=== PATIENT | male | born 1995 | race Caucasian/White ===

== ENCOUNTER 2017-01-13 05:37 | Emergency (ER) | payer OTHER ==
[~2017-01-13] VITALS: Ht 177.8 cm; Wt 97.5 kg
[~2017-01-13 05:37] MED LIST: AMOXICILLIN500 MG PO; AMOXIL250 MG/5 M PO; BENTYL10 MG PO; PREDNISONE20 M1 PO; TYLENOL W/CODE480 ML PO; TYLENOL W/CODEI1 TA2 PO; ZOFRAN ODT4 MG SL
[2017-01-13 05:43] VITALS: BP 129/86
[2017-01-13] MEDS ORDERED: DELTASONE20 M1 PO (06:28)
== END 2017-01-13 06:45 | disposition home or self-care (01) ==
LOC: ED 05:37
DX: R21 Rash and other nonspecific skin eruption (principal); F17.200 Nicotine dependence, unspecified, uncomplicated; Z79.899 Other long term (current) drug therapy

== ENCOUNTER 2017-07-09 20:45 | Emergency (ER) | payer OTHER ==
[~2017-07-09] VITALS: Ht 182.8 cm; Wt 90.7 kg
[~2017-07-09 20:45] MED LIST changes: +DELTASONE20 M1 PO
[2017-07-09 21:03] VITALS: BP 117/72
== END 2017-07-09 23:56 | disposition home or self-care (01) ==
LOC: ED 20:45
DX: S60.011A Contusion of right thumb without damage to nail, initial encounter (principal); Y93.9 Activity, unspecified; Y92.9 Unspecified place or not applicable; Y99.9 Unspecified external cause status; W22.8XXA Striking against or struck by other objects, initial encounter

== ENCOUNTER 2017-09-07 08:37 | Emergency (ER) | payer OTHER ==
[~2017-09-07] VITALS: Ht 177.8 cm; Wt 90.7 kg
[2017-09-07 08:44] VITALS: BP 121/77
[2017-09-07] MEDS ORDERED: PREDNISONE20 M1 PO (09:01)
[2017-09-07] MEDS ORDERED: LIDEX 0.05% CRE15 GM T (09:01)
== END 2017-09-07 09:37 | disposition home or self-care (01) ==
LOC: ED 08:37
DX: L25.9 Unspecified contact dermatitis, unspecified cause (principal); F17.200 Nicotine dependence, unspecified, uncomplicated; F10.10 Alcohol abuse, uncomplicated

== ENCOUNTER 2018-05-28 11:59 | Emergency (ER) | payer SELFPAY ==
[~2018-05-28 11:59] MED LIST changes: +LIDEX 0.05% CRE15 GM T
[2018-05-28 12:01] VITALS: BP 135/84
[2018-05-28] MEDS ORDERED: PREDNISONE10 MG PO (12:05)
== END 2018-05-28 13:55 | disposition home or self-care (01) ==
LOC: ED 11:59
DX: L25.9 Unspecified contact dermatitis, unspecified cause (principal)

== ENCOUNTER 2018-10-28 19:43 | Emergency (ER) | payer SELFPAY ==
[~2018-10-28] VITALS: Ht 182.8 cm; Wt 104.3 kg
[~2018-10-28 19:43] MED LIST changes: +PREDNISONE10 MG PO
[2018-10-28 19:44] VITALS: BP 139/76
[2018-10-28] MEDS ORDERED: ZOFRAN4 MG PO (20:49)
[2018-11-21] MEDS ORDERED: ONDANSETRON4 MG SL (20:34)
== END 2018-10-28 21:05 | disposition home or self-care (01) ==
LOC: ED 19:43
DX: J10.1 Influenza due to other identified influenza virus with other respiratory manifestations (principal); F12.90 Cannabis use, unspecified, uncomplicated; F17.200 Nicotine dependence, unspecified, uncomplicated; Z79.899 Other long term (current) drug therapy

== ENCOUNTER 2019-02-26 11:44 | Emergency (ER) | payer OTHER ==
[~2019-02-26] VITALS: Ht 180.3 cm; Wt 108.9 kg
[~2019-02-26 11:44] MED LIST changes: +ONDANSETRON4 MG SL; +ZOFRAN4 MG PO
[2019-02-26 11:46] VITALS: BP 121/83
[2019-02-26] MEDS ORDERED: MIXED AMPHETAMI25 M1 PO (11:47)
[2019-02-26] MEDS ORDERED: NAPROSYN500 MG PO (12:59)
[2019-02-26] MEDS ORDERED: ROBAXIN500 M1 PO (12:59)
== END 2019-02-26 14:46 | disposition home or self-care (01) ==
LOC: ED 11:44
DX: S46.911A Strain of unspecified muscle, fascia and tendon at shoulder and upper arm level, right arm, initial encounter (principal); F17.200 Nicotine dependence, unspecified, uncomplicated; Z79.899 Other long term (current) drug therapy; X50.0XXA Overexertion from strenuous movement or load, initial encounter; Y93.89 Activity, other specified; Y92.89 Other specified places as the place of occurrence of the external cause; Y99.8 Other external cause status

== ENCOUNTER 2019-05-30 14:18 | Emergency (ER) | payer OTHER ==
[~2019-05-30] VITALS: Ht 177.8 cm; Wt 108.9 kg
[2019-05-30 14:18] VITALS: BP 129/73
[~2019-05-30 14:18] MED LIST changes: +MIXED AMPHETAMI25 M1 PO; +NAPROSYN500 MG PO; +ROBAXIN500 M1 PO
[2019-05-30] MEDS ORDERED: LIDEX 0.05% CRE15 GM T (14:32)
[2019-05-31] MEDS ORDERED: PREDNISONE20 M1 PO (19:44)
== END 2019-05-30 14:41 | disposition home or self-care (01) ==
LOC: ED 14:18
DX: L25.9 Unspecified contact dermatitis, unspecified cause (principal); F17.200 Nicotine dependence, unspecified, uncomplicated; Z79.899 Other long term (current) drug therapy

== ENCOUNTER 2019-05-31 19:16 | Emergency (ER) | payer OTHER ==
[~2019-05-31] VITALS: Ht 177.8 cm; Wt 108.9 kg
[2019-05-31 19:17] VITALS: BP 130/77
[2019-05-31] MEDS ORDERED: PREDNISONE20 M1 PO (19:44)
== END 2019-05-31 20:02 | disposition home or self-care (01) ==
LOC: ED 19:16
DX: L23.7 Allergic contact dermatitis due to plants, except food (principal); F17.200 Nicotine dependence, unspecified, uncomplicated; Z79.899 Other long term (current) drug therapy

== ENCOUNTER → 2019-11-23 | Outpatient (CLI) | payer OTHER ==
[2019-11-23 17:22] LABS: HEMATOCRIT 46.2 % (42.0-52.0); HEMOGLOBIN 16.2 g/dl (14.0-18.0); MEAN CELL VOLUME 90.2 fl (80.0-94.0); MEAN CORPUSCULAR HGB 31.6 pg (27.0-31.0); MEAN CORPUSCULAR HGB CONC 35.1 g/dl (33.0-37.0); MEAN PLATELET VOLUME 11.2 fl (9.6-12.3); RED BLOOD COUNT 5.12 10*6/uL (4.50-5.90); RED CELL DISTRI WIDTH 12.8 % (0-14.5); WHITE BLOOD COUNT 7.8 10*3/uL (4.8-10.8)
[2019-11-23 17:43] LABS: ALBUMIN 4.4 gm/dl (3.1-4.5); ALKALINE PHOSPHATASE 82 U/L (45-117); BUN 11 mg/dl (7-24); CHLORIDE 106 mmol/L (98-107); CREATININE 1.01 mg/dL (0.70-1.30); POTASSIUM 3.5 mmol/L (3.5-5.1); SGOT/AST 31 IU/L (3-35); SGPT/ALT 63 U/L (12-78); SODIUM 138 mmol/L (136-145); TOTAL PROTEIN 7.8 gm/dL (6.4-8.2)
== END | disposition home or self-care (01) ==
LOC: LAB 16:57
PROVIDERS: Family Medicine
DX: F90.9 Attention-deficit hyperactivity disorder, unspecified type (principal)

== ENCOUNTER → 2019-11-25 | Outpatient (CLI) | payer OTHER | END | disposition home or self-care (01) | LOC: LAB 17:45 | DX: Z02.83 Encounter for blood-alcohol and blood-drug test (principal) ==

== ENCOUNTER → 2019-12-18 | Outpatient (CLI) | payer OTHER | END | disposition home or self-care (01) | LOC: LAB 14:39 | DX: F90.9 Attention-deficit hyperactivity disorder, unspecified type (principal) ==

== ENCOUNTER 2020-02-13 08:16 | Emergency (ER) | payer OTHER ==
[~2020-02-13] VITALS: Ht 180.3 cm; Wt 108.4 kg
[2020-02-13 08:19] VITALS: BP 135/86
[2020-02-13] MEDS ORDERED: MEDROL DOSEPAK4 MG PO (08:54)
== END 2020-02-13 09:00 | disposition home or self-care (01) ==
LOC: ED 08:16
DX: L25.5 Unspecified contact dermatitis due to plants, except food (principal); Z79.899 Other long term (current) drug therapy

== ENCOUNTER 2020-04-20 16:04 | Emergency (ER) | payer OTHER ==
[~2020-04-20] VITALS: Ht 177.8 cm; Wt 104.3 kg
[~2020-04-20 16:04] MED LIST changes: +MEDROL DOSEPAK4 MG PO
[2020-04-20 16:12] VITALS: BP 146/82
[2020-04-20] MEDS ORDERED: PREDNISONE10 MG PO (16:45)
== END 2020-04-20 16:55 | disposition home or self-care (01) ==
LOC: ED 16:04
DX: L25.5 Unspecified contact dermatitis due to plants, except food (principal); Z79.899 Other long term (current) drug therapy

== ENCOUNTER 2020-11-04 17:35 | Emergency (ER) | payer OTHER ==
[~2020-11-04] VITALS: Ht 177.8 cm; Wt 113.4 kg
[2020-11-04 17:47] VITALS: BP 124/90
[2020-11-04] MEDS ORDERED: CYCLOBENZAPRINE5 M3 PO (19:15)
[2020-11-04] MEDS ORDERED: Motrin,Rufen800 MG PO (19:15)
== END 2020-11-04 19:32 | disposition home or self-care (01) ==
LOC: ED 17:35
DX: S49.91XA Unspecified injury of right shoulder and upper arm, initial encounter (principal); F17.200 Nicotine dependence, unspecified, uncomplicated; Z79.899 Other long term (current) drug therapy; V86.56XA Driver of dirt bike or motor/cross bike injured in nontraffic accident, initial encounter; Y93.89 Activity, other specified; Y92.89 Other specified places as the place of occurrence of the external cause; Y99.8 Other external cause status

== ENCOUNTER 2021-04-03 12:13 | Emergency (ER) | payer OTHER ==
[~2021-04-03] VITALS: Ht 177.8 cm; Wt 108.9 kg
[~2021-04-03 12:13] MED LIST changes: +CYCLOBENZAPRINE5 M3 PO; +Motrin,Rufen800 MG PO
[2021-04-03 12:34] VITALS: BP 133/80
== END 2021-04-03 12:57 | disposition home or self-care (01) ==
LOC: ED 12:13
DX: L25.9 Unspecified contact dermatitis, unspecified cause (principal); F17.200 Nicotine dependence, unspecified, uncomplicated; Z79.899 Other long term (current) drug therapy; Z98.890 Other specified postprocedural states

== ENCOUNTER 2022-08-09 23:13 | Emergency (ER) | payer OTHER ==
[~2022-08-09] VITALS: Ht 177.8 cm; Wt 99.8 kg
[2022-08-09 23:28] VITALS: BP 112/63
== END 2022-08-10 02:28 | disposition home or self-care (01) ==
LOC: ED 23:13
DX: S16.1XXA Strain of muscle, fascia and tendon at neck level, initial encounter (principal); S00.03XA Contusion of scalp, initial encounter; Z79.899 Other long term (current) drug therapy; Y08.89XA Assault by other specified means, initial encounter; Y93.89 Activity, other specified; Y92.89 Other specified places as the place of occurrence of the external cause; Y99.8 Other external cause status